=== PATIENT | female | born 1950 | race Caucasian/White ===

== ENCOUNTER → 2017-05-07 | Outpatient (CLI) | payer MEDICARE | LOC: M.RAD 15:12 | DX: M11.262 Other chondrocalcinosis, left knee (principal); M11.261 Other chondrocalcinosis, right knee; M16.12 Unilateral primary osteoarthritis, left hip; M25.551 Pain in right hip; G89.29 Other chronic pain; N64.4 Mastodynia; R10.33 Periumbilical pain ==

== ENCOUNTER → 2017-05-19 | Outpatient (CLI) | payer MEDICARE | LOC: M.CT 05-14 09:12 → M.RAD 09:32 | DX: N64.4 Mastodynia (principal); R92.1 Mammographic calcification found on diagnostic imaging of breast; N28.1 Cyst of kidney, acquired; M41.86 Other forms of scoliosis, lumbar region; M47.896 Other spondylosis, lumbar region ==

== ENCOUNTER → 2017-05-30 | Outpatient (CLI) | payer MEDICARE | LOC: M.ULTRA 09:30 | DX: K76.9 Liver disease, unspecified (principal) ==